=== PATIENT | female | born 1985 | race Caucasian/White ===

== ENCOUNTER 2020-03-26 07:33 | Observation (INO) ==
[~2020-03-26 07:33] MED LIST: GLYCOPYRROLATE 0.2 MG/ML VIAL ONE; HYDROcodone/ACETAMINOPHEN 1 EACH TABLET PO ONE; IBUPROFEN 800 MG TABLET PO PRN; KETOROLAC TROMETHAMINE 30 MG/ML VIAL ONE; LIDOCAINE HCL/EPINEPHRINE 50 ML VIAL IJ ONE; NEOSTIGMINE METHYLSULFATE 1 MG/ML VIAL ONE; ONDANSETRON HCL/PF 2 MG/ML VIAL ONE; PROPOFOL VIAL IV ONE; ROCURONIUM BROMIDE 10 MG/ML VIAL ONE; SEVOFLURANE 250 ML BTL IH ONE; SUCCINYLCHOLINE CHLORIDE 20 MG/ML VIAL ONE; fentaNYL CITRATE/PF 50 MCG/ML AMPUL ONE
--- NOTE | 2020-03-26 08:37 | ANES ---
Anesthesia Pre Procedure Eval Vitals/Labs: Last Vital Signs Temp 37 C 03/26/20 07:43 Pulse 85 03/26/20 07:43 Resp 12 03/26/20 07:43 BP 127/82 03/26/20 07:43 Pulse Ox 100 03/26/20 07:43 HOME MEDICATIONS L.acidoph,Paracasei, B.lactis [Probiotic] 1 ea PO DAILY 06/18/17 [Last Taken Unknown] Multivitamins [Multivitamin Viola] 1 cap PO DAILY 06/18/17 [Last Taken Unknown] buspirone 5 mg tablet 5 mg PO BID PRN 12/23/19 [Last Taken Unknown] cholecalciferol (vitamin D3) 25 mcg (1,000 unit) capsule 1,000 unit PO DAILY 12/23/19 [Last Taken Unknown] cyclobenzaprine 10 mg tablet 10 mg PO BID PRN 12/23/19 [Last Taken Unknown] levonorgestrel 20 mcg/24 hours (6 yrs) 52 mg intrauterine device INTRAUTERINE 12/23/19 [Last Taken Unknown] magnesium 250 mg tablet 250 mg PO DAILY 12/23/19 [Last Taken Unknown] mecobalamin (vitamin B12) 1,000 mcg chewable tablet 1,000 mcg PO DAILY 12/23/19 [Last Taken Unknown] duloxetine 30 mg capsule,delayed release 30 mg PO DAILY #30 cap 03/23/20 [Last Taken Unknown] hydrocodone 5 mg-acetaminophen 325 mg tablet 1 tab PO Q6H PRN 5 Days #12 tab 03/23/20 [Last Taken Unknown] ondansetron HCl 4 mg tablet 4 mg PO Q4H PRN #15 tab 03/23/20 [Last Taken Unknown] Naproxen Sodium BID PRN 03/26/20 [Last Taken Unknown] Allergies/Adverse Reactions: Allergies Allergy/AdvReac Type Severity Reaction Status Date / Time No Known Allergies Allergy Verified 03/26/20 07:49 - Planned Procedure Planned Procedure: laparoscopy treatment of endometriosis Medication List Reviewed:: Yes Allergies Verified: Yes Medical History (Last Reviewed 03/26/20 @ 08:36 by Joe Mejia CRNA) Dizziness Joint pain Migraine Fatigue Surgical History (Last Reviewed 03/26/20 @ 08:36 by Joe Mejia CRNA) Hx of cholecystectomy Onset Date: ~2004 Family History (Last Reviewed 03/26/20 @ 08:36 by Joe Mejia CRNA) Mother Cancer, Onset Age: 51 kidney cancer Myocardial infarction Endometriosis hysterectomy-age 40 Father Myocardial infarction - Family Anesthesia History Family History:: no untoward family reactions to anesthesia, no familial bleeding tendencies, no family history of clotting disorders, no family history of premature - Airway/Neck/Teeth Within Normal Limits:: Yes Teeth Condition: intact Neck Exam: full range of motion Mallampatti Score: 2 Thyromental (T-M) distance: > 6 cm Mandibulo Hyoid distance: > 3 cm - Respiratory Respiratory Physical: lungs clear Smoking Status: Never smoker Sleep Apnea currently treated: No Sleep Apnea by current assessment: No - Cardiovascular Tolerate Activity: Fair Heart Sounds: S1 & S2, Regular - Gastrointestinal NPO since: 2400 - Anesthesia Assessment and Plan Narrative: Hx Nausea ASA Class: PS, II Anesthesia Type Plan: General ET
[2020-03-26] MEDS: RINGER'S SOLUTION,LACTATED 1,000 ML IV PRN ×5 (08:40→21:01)
[2020-03-26] MEDS ORDERED: SCOPOLAMINE HYDROBROMIDE 1.5 MG PATC TD ONE (08:41)
[2020-03-26] MEDS ORDERED: LIDOCAINE HCL/EPINEPHRINE 50 ML VIAL IJ ONE (10:57)
--- NOTE | 2020-03-26 11:22 | ANES ---
Post Anesthesia Discharge - Transfer of Care Transfer of Care handoff given to nurse: Yes - Discharge from PACU Discharge from PACU when meets criteria: Yes - Comfortable post fentanyl
--- NOTE | 2020-03-26 11:36 | ANES ---
Post Anesthesia Assessment - Vital Signs Vitals: Last Vital Signs Temp 36.7 C 03/26/20 11:15 Pulse 71 03/26/20 11:30 Resp 12 03/26/20 11:30 BP 117/68 03/26/20 11:30 Pulse Ox 100 03/26/20 11:30 Airway Patency: Normal - Mental Status Level Of Consciousness: Awake, Alert, Appropriate - Pain Level Pain Score: 4 - N/V Assessment Nausea/Vomiting Presence: None Dehydration:: No
--- NOTE | 2020-03-26 11:42 | OR ---
Operative Report - Dictated Report Narrative: Preoperative diagnosis: dysmenorrhea, dyspareunia, endometriosis, failure of hormonal management with Mirena IUD Postoperative diagnosis: same and in addition left ovarian endometrioma Procedure: Laparoscopic treatment of endometriosis, bilateral salpingectomy, left oophorectomy Surgeon: Dr. Brown Anesthesia: WHIT Anesthesiologist: Joe Mejia CRNA Description of the procedure: The patient was taken to the operating room where general anesthesia was induced. She was then prepped and draped in the lithotomy position in the standard surgical fashion. A uterine manipulator was not placed due to a Mirena IUD in place. Attention was then turned to the abdomen. A 5 mm skin incision was made at the punctum of the umbilicus. The abdomen was entered directly and then insufflated with CO2 gas. Two additional 5 mm ports were placed in the RLQ and LLQ respectively. The liver edge was examined and appeared normal. There were several brown of spots of endometriosis throughout the abdomen that were removed but due to the small nature a specimen was not available. An additional LLQ 5 mm port was placed due to not having a uterine manipulator. The lower LLQ port was switched to a 12 mm port to allow for removal of the left ovary. The left ovary was noted to have an endometrioma and thus it was removed. The IP ligament was transected after identifying the ureter. The left ovary was placed in an endobag and removed from the abdomen. The left fallopian tube was removed along with the ovary. The rectovaginal septum was found to have endometriosis. An avascular plane was hydrodissected and circumscribed with the Ligasure device and removed from the abdomen. The same procedure was repeated on left uterosacral area and left pelvic side wall. The left pelvic side wall was an Alexis Masters defect. The 12 mm port's fascia was closed using a Brannon-Chung closure device. The skin incisions were closed with 4-0 rapide. The umbilical incision was closed with 3-0 rapide. Guadalupe Guerra alanis was placed over the incisions. The incisions were covered with band aids. All sponge, lap, and needle counts were correct. The patient tolerated the procedure well. She was transferred to the recovery room in stable condition. EBL: minimal Complications: none
[2020-03-26] MEDS: MORPHINE SULFATE 2 MG/ML DISP.SYRIN IV PRN ×2 (12:01→13:56)
[2020-03-26] MEDS ORDERED: HYDROcodone/ACETAMINOPHEN 1 EACH TABLET PO ONE (15:00)
[2020-03-26] MEDS ORDERED: ONDANSETRON HCL/PF 2 MG/ML VIAL IV PRN (16:18)
--- NOTE | 2020-03-26 16:58 | HP ---
Chief Complaint - Chief Complaint Date of Service: 03/26/20 Time of Service: 16:54 Chief Complaint: dizziness and lightheadedness History of Present Illness: 35 year old POD 0 s/p laparoscopy with postop dizziness/lightheadedness, unable to get to the bathroom on her own and admitted for overnight observation. Medical History (Last Reviewed 03/26/20 @ 16:56 by Socorro Brown MD) Dizziness Joint pain Migraine Fatigue Surgical History: Surgical History (Last Reviewed 03/26/20 @ 16:56 by Socorro Brown MD) Hx of cholecystectomy Onset Date: ~2004 Family History: Family History (Last Reviewed 03/26/20 @ 16:56 by Socorro Brown MD) Mother Cancer, Onset Age: 51 kidney cancer Myocardial infarction Endometriosis hysterectomy-age 40 Father Myocardial infarction Social History: (Last Reviewed 03/26/20 @ 16:56 by Socorro Brown MD) Social History: Marital status: lives independently: Yes household members: spouse current occupational status: employed current occupation: user interface engineer Highest level of school completed/degree received: Doctoral degree Service: No Tobacco: Smoking Status: Never smoker Alcohol: alcohol intake: current alcohol intake frequency: holiday/special occasion Substance Use: substance use type: does not use Dietary Habits: caffeine: Yes caffeine comment: 1/daily Type: carbonated beverages Review Of Systems (GEN) - Review of Systems Generalized/Overall Review: Present: No Symptoms Reported Misc: All systems neg except as marked Immunizations: IMMUNIZATION HX Immunizations Up to Date Yes History of Influenza Vaccine Yes Hx Pneumococcal Vaccination No Allergies/Adverse Reactions: Allergies Allergy/AdvReac Type Severity Reaction Status Date / Time No Known Allergies Allergy Verified 03/26/20 07:49 Home Medications: HOME MEDICATIONS L.acidoph,Paracasei, B.lactis [Probiotic] 1 ea PO DAILY 06/18/17 [Last Taken Unknown] Multivitamins [Multivitamin Viola] 1 cap PO DAILY 06/18/17 [Last Taken Unknown] buspirone 5 mg tablet 5 mg PO BID PRN 12/23/19 [Last Taken Unknown] cholecalciferol (vitamin D3) 25 mcg (1,000 unit) capsule 1,000 unit PO DAILY 12/23/19 [Last Taken Unknown] cyclobenzaprine 10 mg tablet 10 mg PO BID PRN 12/23/19 [Last Taken Unknown] levonorgestrel 20 mcg/24 hours (6 yrs) 52 mg intrauterine device INTRAUTERINE 12/23/19 [Last Taken Unknown] magnesium 250 mg tablet 250 mg PO DAILY 12/23/19 [Last Taken Unknown] mecobalamin (vitamin B12) 1,000 mcg chewable tablet 1,000 mcg PO DAILY 12/23/19 [Last Taken Unknown] duloxetine 30 mg capsule,delayed release 30 mg PO DAILY #30 cap 03/23/20 [Last Taken Unknown] hydrocodone 5 mg-acetaminophen 325 mg tablet 1 tab PO Q6H PRN 5 Days #12 tab 03/23/20 [Last Taken Unknown] ondansetron HCl 4 mg tablet 4 mg PO Q4H PRN #15 tab 03/23/20 [Last Taken Unknown] Naproxen Sodium BID PRN 03/26/20 [Last Taken Unknown] Exam - Exam Vital Signs: Vital Signs - Last Taken Temp 36.8 C 03/26/20 11:35 Pulse 75 03/26/20 16:30 Resp 12 03/26/20 16:30 BP 122/77 03/26/20 16:30 Pulse Ox 100 03/26/20 16:30 Constitutional: Present: Alert, Oriented x3, Cooperative, No distress ENT Exam: Present: hearing grossly normal Eye Exam: bilateral eye: normal inspection Neck: Present: normal inspection Respiratory: Present: lungs clear, normal breath sounds, no respiratory distress Cardiovascular/Chest: Present: regular rate, rhythm Abdomen: Present: soft, nontender, nondistended Extremity: Present: non-tender, no calf tenderness Skin Exam: Present: normal color, warm/dry, no cyanosis Neurologic: Present: alert, normal mood/affect, oriented x 3 Appearance: Present: appropriate appearance, appropriate insight, neat, no memory impairment Eye contact: Present: cooperative, good eye contact, normal speech Thoughts: Present: normal thought pattern Diagnostic Studies: Laboratory Results Urine HCG, Qual Negative (NEGATIVE) 03/26/20 07:40 Assessment/Plan - Narrative Narrative: Admit for overnight observation due to lightheadedness/dizziness Plan to discharge in the morning - Assessment/Plan (1) Dizziness Problem: Acute (2) Lightheadedness Problem: Acute (3) S/P laparoscopy Problem: Acute
[2020-03-26] MEDS: HYDROcodone/ACETAMINOPHEN 1 EACH TABLET PO PRN ×2 (19:29→23:20)
[2020-03-26] MEDS: IBUPROFEN 800 MG TABLET PO PRN (21:01)
[2020-03-27] MEDS: RINGER'S SOLUTION,LACTATED 1,000 ML IV PRN (05:04)
[2020-03-27] MEDS: HYDROcodone/ACETAMINOPHEN 1 EACH TABLET PO PRN ×2 (05:06→11:27)
[2020-03-27] MEDS: IBUPROFEN 800 MG TABLET PO PRN (08:01)
[2020-03-27] MEDS ORDERED: MULTIVITAMINS 1 CAP CAPSULE PO SCH (09:00)
--- NOTE | 2020-03-27 11:18 | PN ---
Subjective - Date and Time Seen Date: 03/27/20 Time: 11:14 Subjective Narrative: Patient is feeling a lot better. She is able to get out of bed to the bathroom without dizziness and without passing out. Objective Objective Narrative: See vital signs - Review of Systems Generalized/Overall Review: Reports: No Symptoms Reported Misc: All systems neg except as marked - Vitals Vitals: Last Vital Signs Temp 37.8 C 03/27/20 10:36 Pulse 71 03/27/20 10:36 Resp 12 03/27/20 10:36 BP 131/83 03/27/20 10:36 Pulse Ox 100 03/27/20 10:36 - Exam Constitutional: Present: Alert, Oriented x3, Cooperative, No distress ENT Exam: Present: hearing grossly normal Neck: Present: normal inspection Breasts: Present: Exam deferred Abdomen: Present: soft, nondistended - appropriately tender, incisions c/d/i Extremity: Present: non-tender, no calf tenderness Skin Exam: Present: normal color, warm/dry, no cyanosis Neurologic: Present: alert, normal mood/affect, oriented x 3 Appearance: Present: appropriate appearance, appropriate insight, neat, no memory impairment Eye contact: Present: cooperative, good eye contact, normal speech Thoughts: Present: normal thought pattern Assessment/Plan Plan Narrative: POD 1 s/p laparoscopy Doing well Discharge home - Problems/Diagnosis (1) Dizziness Problem: Acute (2) Lightheadedness Problem: Acute (3) S/P laparoscopy Problem: Acute
--- NOTE | 2020-03-27 11:20 | DS ---
(1) Dizziness Problem: Acute (2) Lightheadedness Problem: Acute (3) S/P laparoscopy Problem: Acute Date of Discharge:: 03/27/20 Hospital Course: Patient admitted overnight after laparoscopic surgery due to dizziness with standing. Dizziness has resolved. Procedures Performed: see notes below List Procedures: Laparoscopy, treatment of endometriosis, bilateral salpingectomies, left oophorectomy Results and Findings: Lab Pending Results 03/26/20 07:40: Urine HCG, Qual Negative Discharge Location: Home Disposition: Home self-care Condition: Good Discharge Activity: Activity as tolerated Discharge Diet: General/regular food Referrals: Yissel Marcos, [Primary Care Provider] - Problem Oriented Discharge Instructions to Patient/Family: Endometrial Ablation, Care After, Bilateral Salpingo-Oophorectomy, Care After Additional Patient Instructions (free text): Please read your discharge instructions. Please contact Dr. Brown at [phone] with any questions or concerns. You may shower tomorrow, 03/27/20. Please pat your incisions dry and reapply bandages. Your follow-up appointment with Dr. Brown is scheduled for Monday, April 06, 2020 at 3:30 p.m. at the [facility]. Complete Home Medications List: Complete Home Medication List: L.acidoph,Paracasei, B.lactis [Probiotic] 1 ea PO DAILY 06/18/17 Multivitamins [Multivitamin Viola] 1 cap PO DAILY 06/18/17 buspirone 5 mg tablet 5 mg PO BID PRN 12/23/19 cholecalciferol (vitamin D3) 25 mcg (1,000 unit) capsule 1,000 unit PO DAILY 12/23/19 cyclobenzaprine 10 mg tablet 10 mg PO BID PRN 12/23/19 levonorgestrel 20 mcg/24 hours (6 yrs) 52 mg intrauterine device INTRAUTERINE 12/23/19 magnesium 250 mg tablet 250 mg PO DAILY 12/23/19 duloxetine 30 mg capsule,delayed release 30 mg PO DAILY #30 cap 03/23/20 hydrocodone 5 mg-acetaminophen 325 mg tablet 1 tab PO Q6H PRN 5 Days #12 tab 03/23/20 ondansetron HCl 4 mg tablet 4 mg PO Q4H PRN #15 tab 03/23/20 Naproxen Sodium [Aleve] 220 mg PO BID PRN #0 01/15/21 Vitamin B Complex 1 ea PO DAILY 03/26/20 Forms: Patient Portal Registration
[2020-03-27 11:50] VITALS: BP 127/75
== END 2020-03-27 12:25 | disposition home or self-care (01) ==
LOC: MS 07:33 → SUR 07:33
PROVIDERS: ADMIT Obstetrics & Gynecology; ATTEND Obstetrics & Gynecology
DX: N94.10 Unspecified dyspareunia; N80.9 Endometriosis, unspecified; N94.6 Dysmenorrhea, unspecified; N80.1 Endometriosis of ovary; R42 Dizziness and giddiness